=== PATIENT | male | born 1995 | race Two or more races ===

== ENCOUNTER 2018-01-18 19:10 | Emergency (ER) | payer SELFPAY ==
[~2018-01-18] VITALS: Ht 167.6 cm; Wt 68.0 kg
--- NOTE | 2018-01-18 19:48 | Emergency Room Report ---
History of Present Illness General Source: Patient, EMS Present Illness HPI Patient is a 22-year-old male brought in by EMS after increased right arm discomfort as well as generalized dizziness. The patient reports having the recently been using methamphetamine as well as GHB. He reports having a moderate headache. He reports feeling dizzy and lightheaded. He reports having some generalized rash. Patient has prior history of HIV is currently on Genvoya The patient reports last used meth approximately 6 hours ago. Allergies: Coded Allergies: No Known Allergies (Unverified , 01/18/18) Patient History Past Medical History: see triage record Review of Systems All Other Systems: negative except mentioned in HPI Physical Exam Sp02 EP Interpretation: reviewed, normal General Appearance: normal inspection, well appearing, no apparent distress, alert, GCS 15 Head: atraumatic ENT: normal ENT inspection, hearing grossly normal, normal voice Neck: normal inspection, full range of motion, supple, no bony tend Respiratory: normal inspection, lungs clear, normal breath sounds, no respiratory distress, no retraction, no wheezing Cardiovascular #1: regular rate, rhythm, no edema Gastrointestinal: normal inspection, normal bowel sounds, non tender, soft, no guarding, no hernia Genitourinary: no CVA tenderness Musculoskeletal: normal inspection, back normal, normal range of motion Neurologic: normal inspection, alert, oriented x3, responsive, computational theory scientist III-XII nml as tested, motor strength/tone normal, speech normal Psychiatric: normal inspection, judgement/insight normal, mood/affect normal Skin: normal inspection, normal color, no rash Medical Decision Making Diagnostic Impression: Primary Impression: Substance abuse ER Course Patient presented for palpitations. Differential diagnosis included was not limited to CVA, intracranial hemorrhage, myocardial infarction, drug overdose among others. CT of the head was ordered due to patient's complaints of extremity numbness. The CT the head read by radiology showed no evidence of acute intracranial hemorrhage or CVA. The patient was given Ativan by mouth for anxiety likely related to methamphetamine. Patient denies any suicidal thoughts. Status: unchanged Disposition: ADMITTED INPATIENT Condition: Basilio Coulter MD Jan 18, 2018 19:48
[2018-01-18] MEDS ORDERED: GENVOYA TABLET1 EACH PO (20:02)
[2018-01-18 20:15] VITALS: BP 149/86
--- NOTE | 2018-01-18 20:43 | Diagnostic Imaging Report ---
EXAM: CT Head Without Intravenous Contrast CLINICAL HISTORY: PAIN TECHNIQUE: Axial computed tomography images of the head/brain without intravenous contrast. CTDI is 0.15 + 70.38 mGy and DLP is 1358 mGy-cm. One or more of the following dose reduction techniques were used: automated exposure control, adjustment of the mA and/or kV according to patient size, use of iterative reconstruction technique. COMPARISON: No relevant prior studies available. FINDINGS: Brain: No hemorrhage. No edema. Ventricles: No ventriculomegaly. Bones/joints: No acute fracture. Soft tissues: Unremarkable. Sinuses: No acute sinusitis. Mastoid air cells: No mastoid effusion. IMPRESSION: No acute findings.
[2018-01-18] MEDS ORDERED: LORazepam 1mg tab ORAL ONE (21:15)
[2018-01-18 21:22] VITALS: BP 138/75
== END 2018-01-18 21:22 | disposition other institution (70) ==
LOC: EDBD 19:10 → EMR 19:56
DX: F15.10 Other stimulant abuse, uncomplicated (principal); R51 Headache; R53.1 Weakness; R00.2 Palpitations
CPT/HCPCS: 70450; 99285